=== PATIENT | female | born 1960 | race African-American/Black ===

== ENCOUNTER 2021-12-22 09:10 | Day surgery (SDC) | payer OTHER ==
[2021-12-19 14:39] VITALS: BMI 32.4
[~2021-12-22 09:10] MED LIST: PROPOFOL 20 ML ONE
[2021-12-22] MEDS ORDERED: Lidocaine 1% MPF 2 ML VIAL ONE (09:37)
[2021-12-22] MEDS ORDERED: Lidocaine 2% MPF 10 ML AMP (For Epidural Use) ONE (10:03)
== END 2021-12-22 11:30 | disposition home or self-care (01) ==
LOC: CSHSDC 09:10
PROVIDERS: ATTEND Internal Medicine Gastroenterology
PROC: 0DJD8ZZ Inspection of Lower Intestinal Tract, Via Natural or Artificial Opening Endoscopic (ICD-10-PCS; principal; 2021-12-22)
DX: Z12.11 Encounter for screening for malignant neoplasm of colon (principal); K64.9 Unspecified hemorrhoids; Z86.010 Personal history of colon polyps; I10 Essential (primary) hypertension; E03.9 Hypothyroidism, unspecified; D64.9 Anemia, unspecified; Z85.3 Personal history of malignant neoplasm of breast
CPT/HCPCS: J2704